=== PATIENT | female | born 1995 | race Hispanic/Latino ===

== ENCOUNTER 2020-04-12 10:55 | Inpatient (IN) | payer OTHER ==
[2020-04-12] MEDS ORDERED: LACTATED RINGERS 1,000 ML ONE (11:35)
[2020-04-12] MEDS ORDERED: fentaNYL 100 MCG/2 ML INJ IV PRN (12:10)
[2020-04-12] MEDS ORDERED: ePHEDrine SULFATE 50 MG/1 ML INJ IV PRN ×2 (12:10→17:39)
[2020-04-12] MEDS ORDERED: LIDOCAINE (2%) 20 MG/1 ML VIAL 20 ML MDV INFILTRATI ONE (12:10)
[2020-04-12] MEDS ORDERED: TERBUTALINE 1 MG/1 ML INJ SUB-Q PRN (12:10)
[2020-04-12] MEDS ORDERED: MINERAL OIL 30 ML ORAL LIQD PO PRN (12:10)
--- NOTE | 2020-04-12 12:21 | History and Physical Report ---
History of Present Illness Date of examination: 04/12/20 Chief complaint: abd pain, contractions, cat 2 tracing in triage History of present illness: EDC Calculations by LMP: 04/10/2020 Past History : 1 Term Births: 0 Para: 0 Aborta: 0 Past Medical History: heart murmur at Past Surgical History: Negative Past Surgical History Family History Summary: PGF - Has Family History of Lung Cancer - Entered On: 10/26/2019 Social History: Patient is single Smoking History: Patient has never smoked. Risk Factors: Smoked Tobacco Use: Never smoker Smokeless Tobacco Use: Never Tobacco Use Comments: gabo. 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 Infection History Hx of STD: none HIV Risk Eval: low risk Hepatitis B Risk Eval: low risk Personal hx. of genital herpes: no Rash, Viral, or Febrile illness since last LMP? no Varicella/Chicken Pox Status: Immunized TB Risk: no Genetic History Congenital Heart Defect: Mom: no Dad: no Kye Disease: Mom: no Dad: no Thalassemia Mom: no Dad: no Neural Tube Defect Mom: no Dad: no Down's Syndrome Mom: no Dad: no Reji-Sachs Mom: no Dad: no Sickle Cell Disease/Trait Mom: no Dad: no Hemophilia Mom: no Dad: no Muscular Dystrophy Mom: no Dad: no Cystic Fibrosis Mom: no Dad: no [place] Chorea Mom: no Dad: no Mental Retardation Mom: no Dad: no Fragile X Mom: no Dad: no Other Genetic/Chromosomal Disorder Mom: no Dad: no Child w/other defect Mom: no Dad: no Enviromental Exposures Enviromental Exposures Reviewed Xray Exposure: no Medication, drug, or alcohol use since LMP: no Chemical/Other Exposure: no Exposure to Cat Liter: no Hx of Parvovirus (Fifth Disease): no 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): None Current Allergies (reviewed today): PENICILLIN (Critical) Past History Past Medical History: other (see HPI) Past Surgical History: other (see HPI) [employer]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: other (see HPI) Family/Genetic History: other (See HPI) - Obstetrical History Expected Date of Delivery: 04/10/20 Actual Gestation: 40 Week(s) 2 Day(s) : 1 Para: 0 Hx # Term Pregnancies: 0 Number of Pregnancies: 0 Spontaneous Abortions: 0 Induced : 0 Number of Living Children: 0 Medications and Allergies Allergies Allergy/AdvReac Type Severity Reaction Status Date / Time Penicillins AdvReac Severe Anaphylaxis Verified 04/12/20 11:27 Active Meds: Active Medications Ephedrine Sulfate (Ephedrine Sulfate) 10 mg IV Q2M PRN PRN Reason: Hypotension Fentanyl (Sublimaze) 100 mcg IV Q2H PRN PRN Reason: Pain,Severe (7-10) LABOR PAIN Oxytocin/Sodium Chloride (Pitocin/Ns 30 Unit/500ml) 30 units in 500 mls @ 2 mls/hr IV TITR ESAU; Protocol Lactated Ringer's (Lactated Ringers) 1,000 mls @ 125 mls/hr IV DIRECT ESAU Oxytocin/Sodium Chloride (Pitocin/Ns 30 Unit/500ml) 30 units in 500 mls @ 40 mls/hr IV TITR ESAU; Protocol Clindamycin HCl (Cleocin 900 Mg/50 Ml) 900 mg in 50 mls @ 100 mls/hr IV Q8HR ESAU; Protocol Lidocaine (Xylocaine 2%) 20 ml INFILTRATI ONCE ONE Stop: 04/12/20 12:11 Mineral Oil (Mineral Oil) 30 ml PO QHS PRN PRN Reason: Constipation Terbutaline Sulfate (Brethine) 0.25 mg SUB-Q ONCE PRN PRN Reason: Hyperstimulation/Hypertonicity Review of Systems All systems: negative - Vital Signs Vital signs: Vital Signs Pulse BP 86 132/77 04/12/20 11:26 04/12/20 11:26 Temp Pulse Resp BP Pulse Ox 98.4 F 98 H 20 132/77 100 04/12/20 11:28 04/12/20 12:08 04/12/20 11:28 04/12/20 11:28 04/12/20 12:08 - Physical Exam Breasts: Positive: normal Cardiovascular: Regular rate Lungs: Positive: Clear to auscultation, Normal air movement Abdomen: Positive: normal appearance, soft Genitourinary (Female): Positive: normal external genitalia, normal perenium Vulva: both: normal Vagina: Positive: normal moisture Anus/Rectum: Positive: normal perianal skin Extremities: Positive: normal - Obstetrical FHR: category 2 Uterine Contraction Monitor Mode: External Uterine Tone Measurement Phase: Contraction Uterine Contraction Intensity: Mild Results All other labs normal. Assessment and Plan 25y/o @ 40+2 presented to triage with c/o labor, during observation, FHT noted to be cat 2 with decels occurring around ctx. EFW more difficult d/t maternal habitus. Plan to admit, place internal monitor and augment as tolerated. Dr. Perez updated. - Patient Problems (1) 40 weeks gestation of Current Visit: Yes Status: Acute (2) Non-reassuring electronic monitoring tracing Current Visit: Yes Status: Acute Plan to address problem: placement of IUPC and ISE as soon as possible for better monitoring (3) GBS carrier Current Visit: Yes Status: Acute Plan to address problem: abx q8hrs until delivery
[2020-04-12] MEDS: LACTATED RINGERS 1,000 ML IV SCH ×3 (12:47→18:31)
[2020-04-12] MEDS ORDERED: OXYTOCIN DRIP 30 UNITS/500 ML BAG IV SCH ×2 (13:00)
[2020-04-12 13:23] LABS: Mean Corpuscular HGB Conc 36 % (30-34); Mean Corpuscular Volume 90 fl (79-97); Platelet Count 237 K/mm3 (140-440); Red Blood Count 4.42 M/mm3 (3.65-5.03)
[2020-04-12 13:28] LABS: Hematocrit 39.6 % (30.3-42.9); Hemoglobin 14.4 gm/dl (10.1-14.3)
[2020-04-12] MEDS ORDERED: NALOXONE 2 MG/2 ML INJ IV PRN (17:39)
--- NOTE | 2020-04-12 17:51 | Progress Note ---
Assessment and Plan 25y/o @ 40+2. SROM clear fluid. FHT's CAT 2 with decels. Internals placed and resuscitation efforts complete. Now CAT 1. bolusing for epidural placement. Continue monitoring and anticipate . - Patient Problems (1) 40 weeks gestation of Current Visit: Yes Status: Acute (2) Non-reassuring electronic monitoring tracing Current Visit: Yes Status: Acute Plan to address problem: placement of IUPC and ISE for more accurate monitoring (3) GBS carrier Current Visit: Yes Status: Acute Plan to address problem: abx q8hrs until delivery Subjective - Subjective Date of service: 04/12/20 Principal diagnosis: IUP @ term, active labor Interval history: EDC Calculations by LMP: 04/10/2020 Past History : 1 Term Births: 0 Para: 0 Aborta: 0 Past Medical History: heart murmur at Past Surgical History: Negative Past Surgical History Family History Summary: PGF - Has Family History of Lung Cancer - Entered On: 10/26/2019 Social History: Patient is single Smoking History: Patient has never smoked. Risk Factors: Smoked Tobacco Use: Never smoker Smokeless Tobacco Use: Never Tobacco Use Comments: gabo. 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 Infection History Hx of STD: none HIV Risk Eval: low risk Hepatitis B Risk Eval: low risk Personal hx. of genital herpes: no Rash, Viral, or Febrile illness since last LMP? no Varicella/Chicken Pox Status: Immunized TB Risk: no Genetic History Congenital Heart Defect: Mom: no Dad: no Kye Disease: Mom: no Dad: no Thalassemia Mom: no Dad: no Neural Tube Defect Mom: no Dad: no Down's Syndrome Mom: no Dad: no Reji-Sachs Mom: no Dad: no Sickle Cell Disease/Trait Mom: no Dad: no Hemophilia Mom: no Dad: no Muscular Dystrophy Mom: no Dad: no Cystic Fibrosis Mom: no Dad: no [place] Chorea Mom: no Dad: no Mental Retardation Mom: no Dad: no Fragile X Mom: no Dad: no Other Genetic/Chromosomal Disorder Mom: no Dad: no Child w/other defect Mom: no Dad: no Enviromental Exposures Enviromental Exposures Reviewed Xray Exposure: no Medication, drug, or alcohol use since LMP: no Chemical/Other Exposure: no Exposure to Cat Liter: no Hx of Parvovirus (Fifth Disease): no 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): None Current Allergies (reviewed today): PENICILLIN (Critical) Patient reports: loss of fluid Objective - Vital Signs Vital Signs: Vital Signs - 12hr 04/12/20 04/12/20 04/12/20 11:26 11:28 11:33 Temperature 98.4 F Pulse Rate 86 86 77 Respiratory 20 Rate Blood Pressure 132/77 Blood Pressure 132/77 [Right] O2 Sat by Pulse 98 98 Oximetry 04/12/20 04/12/20 04/12/20 11:38 11:43 11:48 Temperature Pulse Rate 88 86 85 Respiratory Rate Blood Pressure Blood Pressure [Right] O2 Sat by Pulse 98 97 98 Oximetry 04/12/20 04/12/20 04/12/20 11:53 11:58 12:03 Temperature Pulse Rate 80 117 H 74 Respiratory Rate Blood Pressure Blood Pressure [Right] O2 Sat by Pulse 98 97 99 Oximetry 04/12/20 04/12/20 04/12/20 12:08 12:18 12:19 Temperature Pulse Rate 98 H 89 96 H Respiratory Rate Blood Pressure Blood Pressure [Right] O2 Sat by Pulse 100 99 92 Oximetry 04/12/20 04/12/20 04/12/20 12:20 12:23 12:26 Temperature Pulse Rate 86 92 H 90 Respiratory Rate Blood Pressure 133/68 Blood Pressure [Right] O2 Sat by Pulse 95 94 Oximetry 04/12/20 04/12/20 04/12/20 12:28 12:33 12:38 Temperature Pulse Rate 96 H 93 H 89 Respiratory Rate Blood Pressure Blood Pressure [Right] O2 Sat by Pulse 95 94 97 Oximetry 04/12/20 04/12/20 04/12/20 12:43 12:48 12:53 Temperature Pulse Rate 88 88 97 H Respiratory Rate Blood Pressure Blood Pressure [Right] O2 Sat by Pulse 97 98 97 Oximetry 04/12/20 04/12/20 04/12/20 12:58 13:03 13:08 Temperature Pulse Rate 87 96 H 82 Respiratory Rate Blood Pressure Blood Pressure [Right] O2 Sat by Pulse 97 97 97 Oximetry 04/12/20 04/12/20 04/12/20 13:13 13:18 13:23 Temperature Pulse Rate 86 78 79 Respiratory Rate Blood Pressure Blood Pressure [Right] O2 Sat by Pulse 96 97 98 Oximetry 04/12/20 04/12/20 04/12/20 13:28 13:33 13:38 Temperature Pulse Rate 86 84 85 Respiratory Rate Blood Pressure Blood Pressure [Right] O2 Sat by Pulse 98 97 98 Oximetry 04/12/20 04/12/20 04/12/20 13:43 13:48 13:53 Temperature Pulse Rate 83 91 H 88 Respiratory Rate Blood Pressure Blood Pressure [Right] O2 Sat by Pulse 96 97 98 Oximetry 04/12/20 04/12/20 04/12/20 13:58 14:03 14:08 Temperature Pulse Rate 86 93 H 85 Respiratory Rate Blood Pressure Blood Pressure [Right] O2 Sat by Pulse 98 98 96 Oximetry 04/12/20 04/12/20 04/12/20 14:13 14:18 14:23 Temperature Pulse Rate 93 H 86 103 H Respiratory Rate Blood Pressure Blood Pressure [Right] O2 Sat by Pulse 96 95 98 Oximetry 04/12/20 04/12/20 04/12/20 14:28 14:33 14:36 Temperature Pulse Rate 89 83 102 H Respiratory Rate Blood Pressure Blood Pressure [Right] O2 Sat by Pulse 98 96 94 Oximetry 04/12/20 04/12/20 04/12/20 14:38 14:43 14:48 Temperature Pulse Rate 75 79 90 Respiratory Rate Blood Pressure Blood Pressure [Right] O2 Sat by Pulse 99 98 98 Oximetry 04/12/20 04/12/20 04/12/20 14:53 14:58 15:03 Temperature Pulse Rate 100 H 83 81 Respiratory Rate Blood Pressure Blood Pressure [Right] O2 Sat by Pulse 98 99 98 Oximetry 04/12/20 04/12/20 04/12/20 15:08 15:13 15:18 Temperature Pulse Rate 86 86 84 Respiratory Rate Blood Pressure Blood Pressure [Right] O2 Sat by Pulse 99 99 98 Oximetry 04/12/20 04/12/20 04/12/20 15:23 15:28 15:33 Temperature Pulse Rate 86 92 H 91 H Respiratory Rate Blood Pressure Blood Pressure [Right] O2 Sat by Pulse 98 97 98 Oximetry 04/12/20 04/12/20 04/12/20 15:38 15:43 15:48 Temperature Pulse Rate 83 86 89 Respiratory Rate Blood Pressure Blood Pressure [Right] O2 Sat by Pulse 97 99 98 Oximetry 04/12/20 04/12/20 04/12/20 15:53 15:58 16:00 Temperature Pulse Rate 85 83 Respiratory 16 Rate Blood Pressure Blood Pressure [Right] O2 Sat by Pulse 98 98 Oximetry 04/12/20 04/12/20 04/12/20 16:03 16:05 16:08 Temperature Pulse Rate 81 93 H 111 H Respiratory Rate Blood Pressure 140/74 Blood Pressure [Right] O2 Sat by Pulse 97 95 Oximetry 04/12/20 04/12/20 04/12/20 16:13 16:18 16:20 Temperature Pulse Rate 81 80 79 Respiratory Rate Blood Pressure 139/72 Blood Pressure [Right] O2 Sat by Pulse 95 96 Oximetry 04/12/20 04/12/20 04/12/20 16:23 16:26 16:28 Temperature Pulse Rate 84 87 81 Respiratory Rate Blood Pressure Blood Pressure [Right] O2 Sat by Pulse 97 94 97 Oximetry 04/12/20 04/12/20 04/12/20 16:33 16:35 16:38 Temperature 98.3 F Pulse Rate 88 112 H 79 Respiratory Rate Blood Pressure 148/84 Blood Pressure [Right] O2 Sat by Pulse 96 97 Oximetry 04/12/20 04/12/20 04/12/20 16:40 16:43 16:47 Temperature Pulse Rate 88 111 H 91 H Respiratory Rate Blood Pressure Blood Pressure [Right] O2 Sat by Pulse 94 97 94 Oximetry 04/12/20 04/12/20 04/12/20 16:48 16:50 16:53 Temperature Pulse Rate 86 80 82 Respiratory Rate Blood Pressure 145/76 Blood Pressure [Right] O2 Sat by Pulse 97 98 Oximetry 04/12/20 04/12/20 04/12/20 16:58 17:03 17:05 Temperature Pulse Rate 82 81 80 Respiratory Rate Blood Pressure 148/76 Blood Pressure [Right] O2 Sat by Pulse 98 99 Oximetry 04/12/20 04/12/20 04/12/20 17:08 17:13 17:18 Temperature Pulse Rate 131 H 120 H 78 Respiratory Rate Blood Pressure Blood Pressure [Right] O2 Sat by Pulse 95 97 99 Oximetry 04/12/20 04/12/20 04/12/20 17:21 17:23 17:28 Temperature Pulse Rate 74 98 H 81 Respiratory Rate Blood Pressure 126/64 Blood Pressure [Right] O2 Sat by Pulse 100 100 Oximetry 04/12/20 04/12/20 04/12/20 17:33 17:38 17:43 Temperature Pulse Rate 79 87 90 Respiratory Rate Blood Pressure Blood Pressure [Right] O2 Sat by Pulse 100 99 100 Oximetry - Exam Breasts: normal Cardiovascular: Regular rate Lungs: Normal air movement Abdomen: Present: normal appearance, soft Vulva: both: normal Uterus: Present: normal FHR: category 2 Uterine Contraction Monitor Mode: Internal Cervical Dilatation: 4 Cervical Effacement Percentage: 100 station: -3 Uterine Contraction Frequency (min): 1-7 Uterine Contraction Pattern: Regular Uterine Contraction Intensity: Moderate Extremities: normal - Labs Labs: Abnormal Labs 04/12/20 12:00 Hgb 14.4 H MCH 33 H MCHC 36 H RDW 13.0 L Laboratory Results - last 24 hr 04/12/20 04/12/20 04/12/20 12:00 12:00 12:00 WBC 10.9 RBC 4.42 Hgb 14.4 H Hct 39.6 MCV 90 MCH 33 H MCHC 36 H RDW 13.0 L Plt Count 237 Syphilis IgG Antibody Nonreactive Blood Type A NEGATIVE Antibody Screen Negative
[2020-04-12] MEDS ORDERED: fentaNYL-BUPIV 2 MCG/ML-0.125% 200 MCG/100 ML BAG EPIDURAL SCH (18:00)
--- NOTE | 2020-04-12 20:50 | Anesthesia Consultation ---
Anesthesia Consult and Med Hx Date of service: 04/12/20 - Airway Anesthetic Teeth Evaluation: Good ROM Head & Neck: Adequate Mental/Hyoid Distance: Adequate Mallampati Class: Class II Intubation Access Assessment: Probably Good - Pulmonary Exam CTA: Yes - Cardiac Exam Cardiac Exam: RRR - Pre-Operative Health Status ASA Pre-Surgery Classification: ASA2 Proposed Anesthetic Plan: Epidural - Pulmonary Hx Asthma: No COPD: No Hx Pneumonia: No - Cardiovascular System Hx Hypertension: No - Central Nervous System Hx Seizures: No Hx Psychiatric Problems: No - Endocrine Hx Renal Disease: No Hx End Stage Renal Disease: No Hx Hypothyroidism: No Hx Hyperthyroidism: No - Hematic Hx Anemia: No Hx Sickle Cell Disease: No - Other Systems Hx Alcohol Use: No Hx Obesity: Yes
--- NOTE | 2020-04-12 20:51 | Progress Note ---
Labor Epidural - Labor Epidural Start Time: 18:33 Stop Time: 18:50 Performed by:: ALDO ADAMSON Procedure: Patient is requesting epidural for labor pain. H&P, and labs reviewed. Procedure explained, questions answered, consent obtained. Patient in sitting position with blood pressure cuff and pulse ox on and working. Timeout performed immediately before start of procedure. Sterile betadine prep/drape. 3 mL 1% lidocaine skin wheal at L[3]-L[4]. 18-gauge [employer] epidural needle advanced to [id number] with saline at [7] cm. Epidural dexmedetomidine [30] mcg administered. Epidural catheter advanced to [12] cm, negative aspiration for blood and csf, negative test dose 3 ml 1.5% lidocaine with epinephrine. Sterile steri-strips and tegaderm applied, followed by tape reinforcement. Patient tolerated procedure well. Mohan ASHBY
--- NOTE | 2020-04-12 21:10 | Progress Note ---
Assessment and Plan 25y/o term IUP @ 40+2. Pt comfortable with epidural, sitting [place]. SVE 8/100/-1. Anticipate - Patient Problems (1) 40 weeks gestation of Current Visit: Yes Status: Acute (2) Non-reassuring electronic monitoring tracing Current Visit: Yes Status: Acute Plan to address problem: continuous monitoring, ISE and IUPC working well (3) GBS carrier Current Visit: Yes Status: Acute Plan to address problem: abx q8hrs until delivery Subjective - Subjective Date of service: 04/12/20 Principal diagnosis: IUP @ term, active labor Interval history: EDC Calculations by LMP: 04/10/2020 Past History : 1 Term Births: 0 Para: 0 Aborta: 0 Past Medical History: heart murmur at Past Surgical History: Negative Past Surgical History Family History Summary: PGF - Has Family History of Lung Cancer - Entered On: 10/26/2019 Social History: Patient is single Smoking History: Patient has never smoked. Risk Factors: Smoked Tobacco Use: Never smoker Smokeless Tobacco Use: Never Tobacco Use Comments: gabo. 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 Infection History Hx of STD: none HIV Risk Eval: low risk Hepatitis B Risk Eval: low risk Personal hx. of genital herpes: no Rash, Viral, or Febrile illness since last LMP? no Varicella/Chicken Pox Status: Immunized TB Risk: no Genetic History Congenital Heart Defect: Mom: no Dad: no Kye Disease: Mom: no Dad: no Thalassemia Mom: no Dad: no Neural Tube Defect Mom: no Dad: no Down's Syndrome Mom: no Dad: no Reji-Sachs Mom: no Dad: no Sickle Cell Disease/Trait Mom: no Dad: no Hemophilia Mom: no Dad: no Muscular Dystrophy Mom: no Dad: no Cystic Fibrosis Mom: no Dad: no [place] Chorea Mom: no Dad: no Mental Retardation Mom: no Dad: no Fragile X Mom: no Dad: no Other Genetic/Chromosomal Disorder Mom: no Dad: no Child w/other defect Mom: no Dad: no Enviromental Exposures Enviromental Exposures Reviewed Xray Exposure: no Medication, drug, or alcohol use since LMP: no Chemical/Other Exposure: no Exposure to Cat Liter: no Hx of Parvovirus (Fifth Disease): no 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): None Current Allergies (reviewed today): PENICILLIN (Critical) Patient reports: no new complaints Objective - Vital Signs Vital Signs: Vital Signs - 12hr 04/12/20 04/12/20 04/12/20 11:26 11:28 11:33 Temperature 98.4 F Pulse Rate 86 86 77 Respiratory 20 Rate Blood Pressure 132/77 Blood Pressure 132/77 [Right] O2 Sat by Pulse 98 98 Oximetry 04/12/20 04/12/20 04/12/20 11:38 11:43 11:48 Temperature Pulse Rate 88 86 85 Respiratory Rate Blood Pressure Blood Pressure [Right] O2 Sat by Pulse 98 97 98 Oximetry 04/12/20 04/12/20 04/12/20 11:53 11:58 12:03 Temperature Pulse Rate 80 117 H 74 Respiratory Rate Blood Pressure Blood Pressure [Right] O2 Sat by Pulse 98 97 99 Oximetry 04/12/20 04/12/20 04/12/20 12:08 12:18 12:19 Temperature Pulse Rate 98 H 89 96 H Respiratory Rate Blood Pressure Blood Pressure [Right] O2 Sat by Pulse 100 99 92 Oximetry 04/12/20 04/12/20 04/12/20 12:20 12:23 12:26 Temperature Pulse Rate 86 92 H 90 Respiratory Rate Blood Pressure 133/68 Blood Pressure [Right] O2 Sat by Pulse 95 94 Oximetry 04/12/20 04/12/20 04/12/20 12:28 12:33 12:38 Temperature Pulse Rate 96 H 93 H 89 Respiratory Rate Blood Pressure Blood Pressure [Right] O2 Sat by Pulse 95 94 97 Oximetry 04/12/20 04/12/20 04/12/20 12:43 12:48 12:53 Temperature Pulse Rate 88 88 97 H Respiratory Rate Blood Pressure Blood Pressure [Right] O2 Sat by Pulse 97 98 97 Oximetry 04/12/20 04/12/20 04/12/20 12:58 13:03 13:08 Temperature Pulse Rate 87 96 H 82 Respiratory Rate Blood Pressure Blood Pressure [Right] O2 Sat by Pulse 97 97 97 Oximetry 04/12/20 04/12/20 04/12/20 13:13 13:18 13:23 Temperature Pulse Rate 86 78 79 Respiratory Rate Blood Pressure Blood Pressure [Right] O2 Sat by Pulse 96 97 98 Oximetry 04/12/20 04/12/20 04/12/20 13:28 13:33 13:38 Temperature Pulse Rate 86 84 85 Respiratory Rate Blood Pressure Blood Pressure [Right] O2 Sat by Pulse 98 97 98 Oximetry 04/12/20 04/12/20 04/12/20 13:43 13:48 13:53 Temperature Pulse Rate 83 91 H 88 Respiratory Rate Blood Pressure Blood Pressure [Right] O2 Sat by Pulse 96 97 98 Oximetry 04/12/20 04/12/20 04/12/20 13:58 14:03 14:08 Temperature Pulse Rate 86 93 H 85 Respiratory Rate Blood Pressure Blood Pressure [Right] O2 Sat by Pulse 98 98 96 Oximetry 04/12/20 04/12/20 04/12/20 14:13 14:18 14:23 Temperature Pulse Rate 93 H 86 103 H Respiratory Rate Blood Pressure Blood Pressure [Right] O2 Sat by Pulse 96 95 98 Oximetry 04/12/20 04/12/20 04/12/20 14:28 14:33 14:36 Temperature Pulse Rate 89 83 102 H Respiratory Rate Blood Pressure Blood Pressure [Right] O2 Sat by Pulse 98 96 94 Oximetry 04/12/20 04/12/20 04/12/20 14:38 14:43 14:48 Temperature Pulse Rate 75 79 90 Respiratory Rate Blood Pressure Blood Pressure [Right] O2 Sat by Pulse 99 98 98 Oximetry 04/12/20 04/12/20 04/12/20 14:53 14:58 15:03 Temperature Pulse Rate 100 H 83 81 Respiratory Rate Blood Pressure Blood Pressure [Right] O2 Sat by Pulse 98 99 98 Oximetry 04/12/20 04/12/20 04/12/20 15:08 15:13 15:18 Temperature Pulse Rate 86 86 84 Respiratory Rate Blood Pressure Blood Pressure [Right] O2 Sat by Pulse 99 99 98 Oximetry 04/12/20 04/12/20 04/12/20 15:23 15:28 15:33 Temperature Pulse Rate 86 92 H 91 H Respiratory Rate Blood Pressure Blood Pressure [Right] O2 Sat by Pulse 98 97 98 Oximetry 04/12/20 04/12/20 04/12/20 15:38 15:43 15:48 Temperature Pulse Rate 83 86 89 Respiratory Rate Blood Pressure Blood Pressure [Right] O2 Sat by Pulse 97 99 98 Oximetry 04/12/20 04/12/20 04/12/20 15:53 15:58 16:00 Temperature Pulse Rate 85 83 Respiratory 16 Rate Blood Pressure Blood Pressure [Right] O2 Sat by Pulse 98 98 Oximetry 04/12/20 04/12/20 04/12/20 16:03 16:05 16:08 Temperature Pulse Rate 81 93 H 111 H Respiratory Rate Blood Pressure 140/74 Blood Pressure [Right] O2 Sat by Pulse 97 95 Oximetry 04/12/20 04/12/20 04/12/20 16:10 16:13 16:18 Temperature 98.3 F Pulse Rate 81 80 Respiratory Rate Blood Pressure Blood Pressure [Right] O2 Sat by Pulse 95 96 Oximetry 04/12/20 04/12/20 04/12/20 16:20 16:23 16:26 Temperature Pulse Rate 79 84 87 Respiratory Rate Blood Pressure 139/72 Blood Pressure [Right] O2 Sat by Pulse 97 94 Oximetry 04/12/20 04/12/20 04/12/20 16:28 16:33 16:35 Temperature 98.3 F Pulse Rate 81 88 112 H Respiratory Rate Blood Pressure 148/84 Blood Pressure [Right] O2 Sat by Pulse 97 96 Oximetry 04/12/20 04/12/20 04/12/20 16:38 16:40 16:43 Temperature Pulse Rate 79 88 111 H Respiratory Rate Blood Pressure Blood Pressure [Right] O2 Sat by Pulse 97 94 97 Oximetry 04/12/20 04/12/20 04/12/20 16:47 16:48 16:50 Temperature Pulse Rate 91 H 86 80 Respiratory Rate Blood Pressure 145/76 Blood Pressure [Right] O2 Sat by Pulse 94 97 Oximetry 04/12/20 04/12/20 04/12/20 16:53 16:58 17:00 Temperature 98.8 F Pulse Rate 82 82 Respiratory Rate Blood Pressure Blood Pressure [Right] O2 Sat by Pulse 98 98 Oximetry 04/12/20 04/12/20 04/12/20 17:03 17:05 17:08 Temperature Pulse Rate 81 80 131 H Respiratory Rate Blood Pressure 148/76 Blood Pressure [Right] O2 Sat by Pulse 99 95 Oximetry 04/12/20 04/12/20 04/12/20 17:13 17:18 17:21 Temperature Pulse Rate 120 H 78 74 Respiratory Rate Blood Pressure 126/64 Blood Pressure [Right] O2 Sat by Pulse 97 99 Oximetry 04/12/20 04/12/20 04/12/20 17:23 17:28 17:33 Temperature Pulse Rate 98 H 81 79 Respiratory Rate Blood Pressure Blood Pressure [Right] O2 Sat by Pulse 100 100 100 Oximetry 04/12/20 04/12/20 04/12/20 17:38 17:43 17:48 Temperature Pulse Rate 87 90 79 Respiratory Rate Blood Pressure Blood Pressure [Right] O2 Sat by Pulse 99 100 99 Oximetry 04/12/20 04/12/20 04/12/20 17:53 17:58 18:03 Temperature Pulse Rate 86 81 82 Respiratory Rate Blood Pressure Blood Pressure [Right] O2 Sat by Pulse 98 100 100 Oximetry 04/12/20 04/12/20 04/12/20 18:08 18:13 18:18 Temperature Pulse Rate 97 H 84 90 Respiratory Rate Blood Pressure Blood Pressure [Right] O2 Sat by Pulse 99 99 98 Oximetry 04/12/20 04/12/20 04/12/20 18:23 18:28 18:33 Temperature Pulse Rate 118 H 78 99 H Respiratory Rate Blood Pressure Blood Pressure [Right] O2 Sat by Pulse 99 99 99 Oximetry 04/12/20 04/12/20 04/12/20 18:36 18:38 18:39 Temperature Pulse Rate 99 H 107 H 89 Respiratory Rate Blood Pressure 142/79 142/67 Blood Pressure [Right] O2 Sat by Pulse 96 Oximetry 04/12/20 04/12/20 04/12/20 18:42 18:43 18:46 Temperature Pulse Rate 82 88 88 Respiratory Rate Blood Pressure 146/69 159/90 Blood Pressure [Right] O2 Sat by Pulse 95 Oximetry 04/12/20 04/12/20 04/12/20 18:48 18:51 18:52 Temperature Pulse Rate 104 H 88 93 H Respiratory Rate Blood Pressure 153/94 135/69 128/71 Blood Pressure [Right] O2 Sat by Pulse 96 Oximetry 04/12/20 04/12/20 04/12/20 18:53 18:54 18:55 Temperature Pulse Rate 80 81 80 Respiratory Rate Blood Pressure 126/61 133/65 141/73 Blood Pressure [Right] O2 Sat by Pulse 95 Oximetry 04/12/20 04/12/20 04/12/20 18:56 18:58 18:59 Temperature Pulse Rate 95 H 70 75 Respiratory Rate Blood Pressure 129/64 121/71 134/63 Blood Pressure [Right] O2 Sat by Pulse 100 Oximetry 04/12/20 04/12/20 04/12/20 19:00 19:01 19:02 Temperature 98.2 F Pulse Rate 86 76 75 Respiratory Rate Blood Pressure 137/73 153/68 147/66 Blood Pressure [Right] O2 Sat by Pulse Oximetry 04/12/20 04/12/20 04/12/20 19:03 19:08 19:09 Temperature Pulse Rate 83 84 84 Respiratory Rate Blood Pressure 142/75 Blood Pressure [Right] O2 Sat by Pulse 100 100 Oximetry 04/12/20 04/12/20 04/12/20 19:13 19:14 19:18 Temperature Pulse Rate 84 85 81 Respiratory Rate Blood Pressure 130/57 Blood Pressure [Right] O2 Sat by Pulse 100 100 Oximetry 04/12/20 04/12/20 04/12/20 19:21 19:23 19:28 Temperature Pulse Rate 88 92 H 79 Respiratory Rate Blood Pressure 116/50 107/49 112/50 Blood Pressure [Right] O2 Sat by Pulse 100 100 Oximetry 04/12/20 04/12/20 04/12/20 19:33 19:34 19:38 Temperature Pulse Rate 82 84 82 Respiratory Rate Blood Pressure 131/60 133/60 Blood Pressure [Right] O2 Sat by Pulse 100 100 Oximetry 04/12/20 04/12/20 04/12/20 19:43 19:48 19:53 Temperature Pulse Rate 82 82 80 Respiratory Rate Blood Pressure 129/61 Blood Pressure [Right] O2 Sat by Pulse 100 100 100 Oximetry 04/12/20 04/12/20 04/12/20 19:58 20:00 20:03 Temperature 97.4 F L Pulse Rate 77 87 Respiratory Rate Blood Pressure 120/59 Blood Pressure [Right] O2 Sat by Pulse 100 100 Oximetry 04/12/20 04/12/20 04/12/20 20:08 20:13 20:15 Temperature Pulse Rate 83 89 77 Respiratory Rate Blood Pressure 126/57 Blood Pressure [Right] O2 Sat by Pulse 100 100 Oximetry 04/12/20 04/12/20 04/12/20 20:18 20:23 20:28 Temperature Pulse Rate 98 H 78 81 Respiratory Rate Blood Pressure Blood Pressure [Right] O2 Sat by Pulse 100 100 100 Oximetry 04/12/20 04/12/20 04/12/20 20:29 20:33 20:38 Temperature Pulse Rate 89 83 101 H Respiratory Rate Blood Pressure 119/53 Blood Pressure [Right] O2 Sat by Pulse 100 100 Oximetry 04/12/20 04/12/20 04/12/20 20:43 20:45 20:48 Temperature Pulse Rate 136 H 103 H 116 H Respiratory Rate Blood Pressure 129/60 Blood Pressure [Right] O2 Sat by Pulse 100 100 Oximetry 04/12/20 04/12/20 04/12/20 20:53 20:58 20:59 Temperature Pulse Rate 140 H 96 H 95 H Respiratory Rate Blood Pressure 142/65 Blood Pressure [Right] O2 Sat by Pulse 100 100 Oximetry - Exam Cardiovascular: Regular rate Lungs: Normal air movement Abdomen: Present: normal appearance, soft Vulva: both: normal Uterus: Present: normal FHR: category 2 Uterine Contraction Monitor Mode: External Cervical Dilatation: 8 Cervical Effacement Percentage: 100 station: -1 Uterine Contraction Frequency (min): 2-4 Uterine Contraction Pattern: Regular Uterine Contraction Intensity: Moderate - Labs Labs: Abnormal Labs 04/12/20 12:00 Hgb 14.4 H MCH 33 H MCHC 36 H RDW 13.0 L Laboratory Results - last 24 hr 04/12/20 04/12/20 04/12/20 12:00 12:00 12:00 WBC 10.9 RBC 4.42 Hgb 14.4 H Hct 39.6 MCV 90 MCH 33 H MCHC 36 H RDW 13.0 L Plt Count 237 Syphilis IgG Antibody Nonreactive Blood Type A NEGATIVE Antibody Screen Negative
[2020-04-12] MEDS ORDERED: METOCLOPRAMIDE 10 MG/2 ML INJ IV ONE (22:01)
[2020-04-12] MEDS ORDERED: BICITRA ORAL LIQD 30ML PO ONE (22:01)
[2020-04-12] MEDS ORDERED: FAMOTIDINE 20 MG/2 ML INJ IV ONE (22:01)
--- NOTE | 2020-04-12 22:02 | Progress Note ---
<FLY MARTINES - Last Filed: 04/12/20 21:58> Assessment and Plan Pt had several deep decelerations to the 50's & 60's with slow return to baseline despite IVF bolus, position change and o2. head rapidly decended from -1 to +1. Dr. Perez at discussing possible need for operative if condition continues to show signs of distress. Pt verbalizes understanding, patient being consented for surgery. - Patient Problems (1) 40 weeks gestation of Current Visit: Yes Status: Acute (2) Non-reassuring electronic monitoring tracing Current Visit: Yes Status: Acute (3) GBS carrier Current Visit: Yes Status: Acute Subjective - Subjective Date of service: 04/12/20 Principal diagnosis: IUP @ term, active labor Interval history: EDC Calculations by LMP: 04/10/2020 Past History : 1 Term Births: 0 Para: 0 Aborta: 0 Past Medical History: heart murmur at Past Surgical History: Negative Past Surgical History Family History Summary: PGF - Has Family History of Lung Cancer - Entered On: 10/26/2019 Social History: Patient is single Smoking History: Patient has never smoked. Risk Factors: Smoked Tobacco Use: Never smoker Smokeless Tobacco Use: Never Tobacco Use Comments: gabo. 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 Infection History Hx of STD: none HIV Risk Eval: low risk Hepatitis B Risk Eval: low risk Personal hx. of genital herpes: no Rash, Viral, or Febrile illness since last LMP? no Varicella/Chicken Pox Status: Immunized TB Risk: no Genetic History Congenital Heart Defect: Mom: no Dad: no Kye Disease: Mom: no Dad: no Thalassemia Mom: no Dad: no Neural Tube Defect Mom: no Dad: no Down's Syndrome Mom: no Dad: no Reji-Sachs Mom: no Dad: no Sickle Cell Disease/Trait Mom: no Dad: no Hemophilia Mom: no Dad: no Muscular Dystrophy Mom: no Dad: no Cystic Fibrosis Mom: no Dad: no [place] Chorea Mom: no Dad: no Mental Retardation Mom: no Dad: no Fragile X Mom: no Dad: no Other Genetic/Chromosomal Disorder Mom: no Dad: no Child w/other defect Mom: no Dad: no Enviromental Exposures Enviromental Exposures Reviewed Xray Exposure: no Medication, drug, or alcohol use since LMP: no Chemical/Other Exposure: no Exposure to Cat Liter: no Hx of Parvovirus (Fifth Disease): no Occupational Exposure to Children: none 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 Active Medications (reviewed today): None Current Allergies (reviewed today): PENICILLIN (Critical) Patient reports: no new complaints Objective - Vital Signs Vital Signs: Vital Signs - 12hr 04/12/20 04/12/20 04/12/20 11:26 11:28 11:33 Temperature 98.4 F Pulse Rate 86 86 77 Respiratory 20 Rate Blood Pressure 132/77 Blood Pressure 132/77 [Right] O2 Sat by Pulse 98 98 Oximetry 04/12/20 04/12/20 04/12/20 11:38 11:43 11:48 Temperature Pulse Rate 88 86 85 Respiratory Rate Blood Pressure Blood Pressure [Right] O2 Sat by Pulse 98 97 98 Oximetry 04/12/20 04/12/20 04/12/20 11:53 11:58 12:03 Temperature Pulse Rate 80 117 H 74 Respiratory Rate Blood Pressure Blood Pressure [Right] O2 Sat by Pulse 98 97 99 Oximetry 04/12/20 04/12/20 04/12/20 12:08 12:18 12:19 Temperature Pulse Rate 98 H 89 96 H Respiratory Rate Blood Pressure Blood Pressure [Right] O2 Sat by Pulse 100 99 92 Oximetry 04/12/20 04/12/20 04/12/20 12:20 12:23 12:26 Temperature Pulse Rate 86 92 H 90 Respiratory Rate Blood Pressure 133/68 Blood Pressure [Right] O2 Sat by Pulse 95 94 Oximetry 04/12/20 04/12/20 04/12/20 12:28 12:33 12:38 Temperature Pulse Rate 96 H 93 H 89 Respiratory Rate Blood Pressure Blood Pressure [Right] O2 Sat by Pulse 95 94 97 Oximetry 04/12/20 04/12/20 04/12/20 12:43 12:48 12:53 Temperature Pulse Rate 88 88 97 H Respiratory Rate Blood Pressure Blood Pressure [Right] O2 Sat by Pulse 97 98 97 Oximetry 04/12/20 04/12/20 04/12/20 12:58 13:03 13:08 Temperature Pulse Rate 87 96 H 82 Respiratory Rate Blood Pressure Blood Pressure [Right] O2 Sat by Pulse 97 97 97 Oximetry 04/12/20 04/12/20 04/12/20 13:13 13:18 13:23 Temperature Pulse Rate 86 78 79 Respiratory Rate Blood Pressure Blood Pressure [Right] O2 Sat by Pulse 96 97 98 Oximetry 04/12/20 04/12/20 04/12/20 13:28 13:33 13:38 Temperature Pulse Rate 86 84 85 Respiratory Rate Blood Pressure Blood Pressure [Right] O2 Sat by Pulse 98 97 98 Oximetry 04/12/20 04/12/20 04/12/20 13:43 13:48 13:53 Temperature Pulse Rate 83 91 H 88 Respiratory Rate Blood Pressure Blood Pressure [Right] O2 Sat by Pulse 96 97 98 Oximetry 04/12/20 04/12/20 04/12/20 13:58 14:03 14:08 Temperature Pulse Rate 86 93 H 85 Respiratory Rate Blood Pressure Blood Pressure [Right] O2 Sat by Pulse 98 98 96 Oximetry 04/12/20 04/12/20 04/12/20 14:13 14:18 14:23 Temperature Pulse Rate 93 H 86 103 H Respiratory Rate Blood Pressure Blood Pressure [Right] O2 Sat by Pulse 96 95 98 Oximetry 04/12/20 04/12/20 04/12/20 14:28 14:33 14:36 Temperature Pulse Rate 89 83 102 H Respiratory Rate Blood Pressure Blood Pressure [Right] O2 Sat by Pulse 98 96 94 Oximetry 04/12/20 04/12/20 04/12/20 14:38 14:43 14:48 Temperature Pulse Rate 75 79 90 Respiratory Rate Blood Pressure Blood Pressure [Right] O2 Sat by Pulse 99 98 98 Oximetry 04/12/20 04/12/20 04/12/20 14:53 14:58 15:03 Temperature Pulse Rate 100 H 83 81 Respiratory Rate Blood Pressure Blood Pressure [Right] O2 Sat by Pulse 98 99 98 Oximetry 04/12/20 04/12/20 04/12/20 15:08 15:13 15:18 Temperature Pulse Rate 86 86 84 Respiratory Rate Blood Pressure Blood Pressure [Right] O2 Sat by Pulse 99 99 98 Oximetry 04/12/20 04/12/20 04/12/20 15:23 15:28 15:33 Temperature Pulse Rate 86 92 H 91 H Respiratory Rate Blood Pressure Blood Pressure [Right] O2 Sat by Pulse 98 97 98 Oximetry 04/12/20 04/12/20 04/12/20 15:38 15:43 15:48 Temperature Pulse Rate 83 86 89 Respiratory Rate Blood Pressure Blood Pressure [Right] O2 Sat by Pulse 97 99 98 Oximetry 04/12/20 04/12/20 04/12/20 15:53 15:58 16:00 Temperature Pulse Rate 85 83 Respiratory 16 Rate Blood Pressure Blood Pressure [Right] O2 Sat by Pulse 98 98 Oximetry 04/12/20 04/12/20 04/12/20 16:03 16:05 16:08 Temperature Pulse Rate 81 93 H 111 H Respiratory Rate Blood Pressure 140/74 Blood Pressure [Right] O2 Sat by Pulse 97 95 Oximetry 04/12/20 04/12/20 04/12/20 16:10 16:13 16:18 Temperature 98.3 F Pulse Rate 81 80 Respiratory Rate Blood Pressure Blood Pressure [Right] O2 Sat by Pulse 95 96 Oximetry 04/12/20 04/12/20 04/12/20 16:20 16:23 16:26 Temperature Pulse Rate 79 84 87 Respiratory Rate Blood Pressure 139/72 Blood Pressure [Right] O2 Sat by Pulse 97 94 Oximetry 04/12/20 04/12/20 04/12/20 16:28 16:33 16:35 Temperature 98.3 F Pulse Rate 81 88 112 H Respiratory Rate Blood Pressure 148/84 Blood Pressure [Right] O2 Sat by Pulse 97 96 Oximetry 04/12/20 04/12/20 04/12/20 16:38 16:40 16:43 Temperature Pulse Rate 79 88 111 H Respiratory Rate Blood Pressure Blood Pressure [Right] O2 Sat by Pulse 97 94 97 Oximetry 04/12/20 04/12/20 04/12/20 16:47 16:48 16:50 Temperature Pulse Rate 91 H 86 80 Respiratory Rate Blood Pressure 145/76 Blood Pressure [Right] O2 Sat by Pulse 94 97 Oximetry 04/12/20 04/12/20 04/12/20 16:53 16:58 17:00 Temperature 98.8 F Pulse Rate 82 82 Respiratory Rate Blood Pressure Blood Pressure [Right] O2 Sat by Pulse 98 98 Oximetry 04/12/20 04/12/20 04/12/20 17:03 17:05 17:08 Temperature Pulse Rate 81 80 131 H Respiratory Rate Blood Pressure 148/76 Blood Pressure [Right] O2 Sat by Pulse 99 95 Oximetry 04/12/20 04/12/20 04/12/20 17:13 17:18 17:21 Temperature Pulse Rate 120 H 78 74 Respiratory Rate Blood Pressure 126/64 Blood Pressure [Right] O2 Sat by Pulse 97 99 Oximetry 04/12/20 04/12/20 04/12/20 17:23 17:28 17:33 Temperature Pulse Rate 98 H 81 79 Respiratory Rate Blood Pressure Blood Pressure [Right] O2 Sat by Pulse 100 100 100 Oximetry 04/12/20 04/12/20 04/12/20 17:38 17:43 17:48 Temperature Pulse Rate 87 90 79 Respiratory Rate Blood Pressure Blood Pressure [Right] O2 Sat by Pulse 99 100 99 Oximetry 04/12/20 04/12/20 04/12/20 17:53 17:58 18:03 Temperature Pulse Rate 86 81 82 Respiratory Rate Blood Pressure Blood Pressure [Right] O2 Sat by Pulse 98 100 100 Oximetry 04/12/20 04/12/20 04/12/20 18:08 18:13 18:18 Temperature Pulse Rate 97 H 84 90 Respiratory Rate Blood Pressure Blood Pressure [Right] O2 Sat by Pulse 99 99 98 Oximetry 04/12/20 04/12/20 04/12/20 18:23 18:28 18:33 Temperature Pulse Rate 118 H 78 99 H Respiratory Rate Blood Pressure Blood Pressure [Right] O2 Sat by Pulse 99 99 99 Oximetry 04/12/20 04/12/20 04/12/20 18:36 18:38 18:39 Temperature Pulse Rate 99 H 107 H 89 Respiratory Rate Blood Pressure 142/79 142/67 Blood Pressure [Right] O2 Sat by Pulse 96 Oximetry 04/12/20 04/12/20 04/12/20 18:42 18:43 18:46 Temperature Pulse Rate 82 88 88 Respiratory Rate Blood Pressure 146/69 159/90 Blood Pressure [Right] O2 Sat by Pulse 95 Oximetry 04/12/20 04/12/20 04/12/20 18:48 18:51 18:52 Temperature Pulse Rate 104 H 88 93 H Respiratory Rate Blood Pressure 153/94 135/69 128/71 Blood Pressure [Right] O2 Sat by Pulse 96 Oximetry 04/12/20 04/12/20 04/12/20 18:53 18:54 18:55 Temperature Pulse Rate 80 81 80 Respiratory Rate Blood Pressure 126/61 133/65 141/73 Blood Pressure [Right] O2 Sat by Pulse 95 Oximetry 04/12/20 04/12/20 04/12/20 18:56 18:58 18:59 Temperature Pulse Rate 95 H 70 75 Respiratory Rate Blood Pressure 129/64 121/71 134/63 Blood Pressure [Right] O2 Sat by Pulse 100 Oximetry 04/12/20 04/12/20 04/12/20 19:00 19:01 19:02 Temperature 98.2 F Pulse Rate 86 76 75 Respiratory Rate Blood Pressure 137/73 153/68 147/66 Blood Pressure [Right] O2 Sat by Pulse Oximetry 04/12/20 04/12/20 04/12/20 19:03 19:08 19:09 Temperature Pulse Rate 83 84 84 Respiratory Rate Blood Pressure 142/75 Blood Pressure [Right] O2 Sat by Pulse 100 100 Oximetry 04/12/20 04/12/20 04/12/20 19:13 19:14 19:18 Temperature Pulse Rate 84 85 81 Respiratory Rate Blood Pressure 130/57 Blood Pressure [Right] O2 Sat by Pulse 100 100 Oximetry 04/12/20 04/12/20 04/12/20 19:21 19:23 19:28 Temperature Pulse Rate 88 92 H 79 Respiratory Rate Blood Pressure 116/50 107/49 112/50 Blood Pressure [Right] O2 Sat by Pulse 100 100 Oximetry 04/12/20 04/12/20 04/12/20 19:33 19:34 19:38 Temperature Pulse Rate 82 84 82 Respiratory Rate Blood Pressure 131/60 133/60 Blood Pressure [Right] O2 Sat by Pulse 100 100 Oximetry 04/12/20 04/12/20 04/12/20 19:43 19:48 19:53 Temperature Pulse Rate 82 82 80 Respiratory Rate Blood Pressure 129/61 Blood Pressure [Right] O2 Sat by Pulse 100 100 100 Oximetry 04/12/20 04/12/20 04/12/20 19:58 20:00 20:03 Temperature 97.4 F L Pulse Rate 77 87 Respiratory Rate Blood Pressure 120/59 Blood Pressure [Right] O2 Sat by Pulse 100 100 Oximetry 04/12/20 04/12/20 04/12/20 20:08 20:13 20:15 Temperature Pulse Rate 83 89 77 Respiratory Rate Blood Pressure 126/57 Blood Pressure [Right] O2 Sat by Pulse 100 100 Oximetry 04/12/20 04/12/20 04/12/20 20:18 20:23 20:28 Temperature Pulse Rate 98 H 78 81 Respiratory Rate Blood Pressure Blood Pressure [Right] O2 Sat by Pulse 100 100 100 Oximetry 04/12/20 04/12/20 04/12/20 20:29 20:33 20:38 Temperature Pulse Rate 89 83 101 H Respiratory Rate Blood Pressure 119/53 Blood Pressure [Right] O2 Sat by Pulse 100 100 Oximetry 04/12/20 04/12/20 04/12/20 20:43 20:45 20:48 Temperature Pulse Rate 136 H 103 H 116 H Respiratory Rate Blood Pressure 129/60 Blood Pressure [Right] O2 Sat by Pulse 100 100 Oximetry 04/12/20 04/12/20 04/12/20 20:53 20:58 20:59 Temperature Pulse Rate 140 H 96 H 95 H Respiratory Rate Blood Pressure 142/65 Blood Pressure [Right] O2 Sat by Pulse 100 100 Oximetry 04/12/20 04/12/20 04/12/20 21:03 21:08 21:13 Temperature Pulse Rate 94 H 106 H 98 H Respiratory Rate Blood Pressure Blood Pressure [Right] O2 Sat by Pulse 100 100 100 Oximetry 04/12/20 04/12/20 04/12/20 21:15 21:18 21:23 Temperature Pulse Rate 103 H 122 H 109 H Respiratory Rate Blood Pressure 133/62 Blood Pressure [Right] O2 Sat by Pulse 100 100 Oximetry 04/12/20 04/12/20 04/12/20 21:28 21:29 21:30 Temperature 98.0 F Pulse Rate 124 H 117 H Respiratory Rate Blood Pressure 123/59 Blood Pressure [Right] O2 Sat by Pulse 99 Oximetry 04/12/20 04/12/20 04/12/20 21:33 21:38 21:43 Temperature Pulse Rate 126 H 122 H 102 H Respiratory Rate Blood Pressure Blood Pressure [Right] O2 Sat by Pulse 98 99 99 Oximetry 04/12/20 04/12/20 21:45 21:55 Temperature Pulse Rate 131 H 128 H Respiratory Rate Blood Pressure 126/58 Blood Pressure [Right] O2 Sat by Pulse 100 Oximetry - Exam Breasts: normal Cardiovascular: Regular rate Lungs: Normal air movement Abdomen: Present: normal appearance, soft Vulva: both: normal FHR: category 2 Uterine Contraction Monitor Mode: Internal Cervical Dilatation: 9 Cervical Effacement Percentage: 100 station: +1 Uterine Contraction Frequency (min): 2-3.5 Uterine Contraction Duration: 60 Uterine Contraction Pattern: Regular Uterine Tone Measurement Phase: Contraction Uterine Contraction Intensity: Moderate Extremities: normal - Labs Labs: Abnormal Labs 04/12/20 12:00 Hgb 14.4 H MCH 33 H MCHC 36 H RDW 13.0 L Laboratory Results - last 24 hr 04/12/20 04/12/20 04/12/20 12:00 12:00 12:00 WBC 10.9 RBC 4.42 Hgb 14.4 H Hct 39.6 MCV 90 MCH 33 H MCHC 36 H RDW 13.0 L Plt Count 237 Syphilis IgG Antibody Nonreactive Blood Type A NEGATIVE Antibody Screen Negative <KYLIE PEREZ D - Last Filed: 04/12/20 23:48> Assessment and Plan Late entry Decelerations noted, cervix 7-8/90/0. FHT's recovered with intrauterine resuscitation measures. Discussed possible need for C/S if FHT's continue to be non-reassuring. Patient voiced concerns for C/S delivery. While reviewing the consent with the patient, late decelerations were noted, findings were explained and concern poor outcome discussed if ALEXANDRA continues, patient consented to proceed with C/S. She was moved to the OR were FHT's were noted to be 142 by hand held doppler on immediate arial to OR. Objective - Vital Signs Vital Signs: Vital Signs - 12hr 04/12/20 04/12/20 04/12/20 11:38 11:43 11:48 Temperature Pulse Rate 88 86 85 Respiratory Rate Blood Pressure O2 Sat by Pulse 98 97 98 Oximetry 04/12/20 04/12/20 04/12/20 11:53 11:58 12:03 Temperature Pulse Rate 80 117 H 74 Respiratory Rate Blood Pressure O2 Sat by Pulse 98 97 99 Oximetry 04/12/20 04/12/20 04/12/20 12:08 12:18 12:19 Temperature Pulse Rate 98 H 89 96 H Respiratory Rate Blood Pressure O2 Sat by Pulse 100 99 92 Oximetry 04/12/20 04/12/20 04/12/20 12:20 12:23 12:26 Temperature Pulse Rate 86 92 H 90 Respiratory Rate Blood Pressure 133/68 O2 Sat by Pulse 95 94 Oximetry 04/12/20 04/12/20 04/12/20 12:28 12:33 12:38 Temperature Pulse Rate 96 H 93 H 89 Respiratory Rate Blood Pressure O2 Sat by Pulse 95 94 97 Oximetry 04/12/20 04/12/20 04/12/20 12:43 12:48 12:53 Temperature Pulse Rate 88 88 97 H Respiratory Rate Blood Pressure O2 Sat by Pulse 97 98 97 Oximetry 04/12/20 04/12/20 04/12/20 12:58 13:03 13:08 Temperature Pulse Rate 87 96 H 82 Respiratory Rate Blood Pressure O2 Sat by Pulse 97 97 97 Oximetry 04/12/20 04/12/20 04/12/20 13:13 13:18 13:23 Temperature Pulse Rate 86 78 79 Respiratory Rate Blood Pressure O2 Sat by Pulse 96 97 98 Oximetry 04/12/20 04/12/20 04/12/20 13:28 13:33 13:38 Temperature Pulse Rate 86 84 85 Respiratory Rate Blood Pressure O2 Sat by Pulse 98 97 98 Oximetry 04/12/20 04/12/20 04/12/20 13:43 13:48 13:53 Temperature Pulse Rate 83 91 H 88 Respiratory Rate Blood Pressure O2 Sat by Pulse 96 97 98 Oximetry 04/12/20 04/12/20 04/12/20 13:58 14:03 14:08 Temperature Pulse Rate 86 93 H 85 Respiratory Rate Blood Pressure O2 Sat by Pulse 98 98 96 Oximetry 04/12/20 04/12/20 04/12/20 14:13 14:18 14:23 Temperature Pulse Rate 93 H 86 103 H Respiratory Rate Blood Pressure O2 Sat by Pulse 96 95 98 Oximetry 04/12/20 04/12/20 04/12/20 14:28 14:33 14:36 Temperature Pulse Rate 89 83 102 H Respiratory Rate Blood Pressure O2 Sat by Pulse 98 96 94 Oximetry 04/12/20 04/12/20 04/12/20 14:38 14:43 14:48 Temperature Pulse Rate 75 79 90 Respiratory Rate Blood Pressure O2 Sat by Pulse 99 98 98 Oximetry 12/02/20 12/02/20 12/02/20 14:53 14:58 15:03 Temperature Pulse Rate 100 H 83 81 Respiratory Rate Blood Pressure O2 Sat by Pulse 98 99 98 Oximetry 04/12/20 04/12/20 04/12/20 15:08 15:13 15:18 Temperature Pulse Rate 86 86 84 Respiratory Rate Blood Pressure O2 Sat by Pulse 99 99 98 Oximetry 04/12/20 04/12/20 04/12/20 15:23 15:28 15:33 Temperature Pulse Rate 86 92 H 91 H Respiratory Rate Blood Pressure O2 Sat by Pulse 98 97 98 Oximetry 04/12/20 04/12/20 04/12/20 15:38 15:43 15:48 Temperature Pulse Rate 83 86 89 Respiratory Rate Blood Pressure O2 Sat by Pulse 97 99 98 Oximetry 04/12/20 04/12/20 04/12/20 15:53 15:58 16:00 Temperature Pulse Rate 85 83 Respiratory 16 Rate Blood Pressure O2 Sat by Pulse 98 98 Oximetry 04/12/20 04/12/20 04/12/20 16:03 16:05 16:08 Temperature Pulse Rate 81 93 H 111 H Respiratory Rate Blood Pressure 140/74 O2 Sat by Pulse 97 95 Oximetry 04/12/20 04/12/20 04/12/20 16:10 16:13 16:18 Temperature 98.3 F Pulse Rate 81 80 Respiratory Rate Blood Pressure O2 Sat by Pulse 95 96 Oximetry 04/12/20 04/12/20 04/12/20 16:20 16:23 16:26 Temperature Pulse Rate 79 84 87 Respiratory Rate Blood Pressure 139/72 O2 Sat by Pulse 97 94 Oximetry 04/12/20 04/12/20 04/12/20 16:28 16:33 16:35 Temperature 98.3 F Pulse Rate 81 88 112 H Respiratory Rate Blood Pressure 148/84 O2 Sat by Pulse 97 96 Oximetry 04/12/20 04/12/20 04/12/20 16:38 16:40 16:43 Temperature Pulse Rate 79 88 111 H Respiratory Rate Blood Pressure O2 Sat by Pulse 97 94 97 Oximetry 04/12/20 04/12/20 04/12/20 16:47 16:48 16:50 Temperature Pulse Rate 91 H 86 80 Respiratory Rate Blood Pressure 145/76 O2 Sat by Pulse 94 97 Oximetry 04/12/20 04/12/20 04/12/20 16:53 16:58 17:00 Temperature 98.8 F Pulse Rate 82 82 Respiratory Rate Blood Pressure O2 Sat by Pulse 98 98 Oximetry 04/12/20 04/12/20 04/12/20 17:03 17:05 17:08 Temperature Pulse Rate 81 80 131 H Respiratory Rate Blood Pressure 148/76 O2 Sat by Pulse 99 95 Oximetry 04/12/20 04/12/20 04/12/20 17:13 17:18 17:21 Temperature Pulse Rate 120 H 78 74 Respiratory Rate Blood Pressure 126/64 O2 Sat by Pulse 97 99 Oximetry 04/12/20 04/12/20 04/12/20 17:23 17:28 17:33 Temperature Pulse Rate 98 H 81 79 Respiratory Rate Blood Pressure O2 Sat by Pulse 100 100 100 Oximetry 04/12/20 04/12/20 04/12/20 17:38 17:43 17:48 Temperature Pulse Rate 87 90 79 Respiratory Rate Blood Pressure O2 Sat by Pulse 99 100 99 Oximetry 04/12/20 04/12/20 04/12/20 17:53 17:58 18:03 Temperature Pulse Rate 86 81 82 Respiratory Rate Blood Pressure O2 Sat by Pulse 98 100 100 Oximetry 04/12/20 04/12/20 04/12/20 18:08 18:13 18:18 Temperature Pulse Rate 97 H 84 90 Respiratory Rate Blood Pressure O2 Sat by Pulse 99 99 98 Oximetry 04/12/20 04/12/20 04/12/20 18:23 18:28 18:33 Temperature Pulse Rate 118 H 78 99 H Respiratory Rate Blood Pressure O2 Sat by Pulse 99 99 99 Oximetry 04/12/20 04/12/20 04/12/20 18:36 18:38 18:39 Temperature Pulse Rate 99 H 107 H 89 Respiratory Rate Blood Pressure 142/79 142/67 O2 Sat by Pulse 96 Oximetry 04/12/20 04/12/20 04/12/20 18:42 18:43 18:46 Temperature Pulse Rate 82 88 88 Respiratory Rate Blood Pressure 146/69 159/90 O2 Sat by Pulse 95 Oximetry 04/12/20 04/12/20 04/12/20 18:48 18:51 18:52 Temperature Pulse Rate 104 H 88 93 H Respiratory Rate Blood Pressure 153/94 135/69 128/71 O2 Sat by Pulse 96 Oximetry 04/12/20 04/12/20 04/12/20 18:53 18:54 18:55 Temperature Pulse Rate 80 81 80 Respiratory Rate Blood Pressure 126/61 133/65 141/73 O2 Sat by Pulse 95 Oximetry 04/12/20 04/12/20 04/12/20 18:56 18:58 18:59 Temperature Pulse Rate 95 H 70 75 Respiratory Rate Blood Pressure 129/64 121/71 134/63 O2 Sat by Pulse 100 Oximetry 04/12/20 04/12/20 04/12/20 19:00 19:01 19:02 Temperature 98.2 F Pulse Rate 86 76 75 Respiratory Rate Blood Pressure 137/73 153/68 147/66 O2 Sat by Pulse Oximetry 04/12/20 04/12/20 04/12/20 19:03 19:08 19:09 Temperature Pulse Rate 83 84 84 Respiratory Rate Blood Pressure 142/75 O2 Sat by Pulse 100 100 Oximetry 04/12/20 04/12/20 04/12/20 19:13 19:14 19:18 Temperature Pulse Rate 84 85 81 Respiratory Rate Blood Pressure 130/57 O2 Sat by Pulse 100 100 Oximetry 04/12/20 04/12/20 04/12/20 19:21 19:23 19:28 Temperature Pulse Rate 88 92 H 79 Respiratory Rate Blood Pressure 116/50 107/49 112/50 O2 Sat by Pulse 100 100 Oximetry 04/12/20 04/12/20 04/12/20 19:33 19:34 19:38 Temperature Pulse Rate 82 84 82 Respiratory Rate Blood Pressure 131/60 133/60 O2 Sat by Pulse 100 100 Oximetry 04/12/20 04/12/20 04/12/20 19:43 19:48 19:53 Temperature Pulse Rate 82 82 80 Respiratory Rate Blood Pressure 129/61 O2 Sat by Pulse 100 100 100 Oximetry 04/12/20 04/12/20 04/12/20 19:58 20:00 20:03 Temperature 97.4 F L Pulse Rate 77 87 Respiratory Rate Blood Pressure 120/59 O2 Sat by Pulse 100 100 Oximetry 04/12/20 04/12/20 04/12/20 20:08 20:13 20:15 Temperature Pulse Rate 83 89 77 Respiratory Rate Blood Pressure 126/57 O2 Sat by Pulse 100 100 Oximetry 04/12/20 04/12/20 04/12/20 20:18 20:23 20:28 Temperature Pulse Rate 98 H 78 81 Respiratory Rate Blood Pressure O2 Sat by Pulse 100 100 100 Oximetry 04/12/20 04/12/20 04/12/20 20:29 20:33 20:38 Temperature Pulse Rate 89 83 101 H Respiratory Rate Blood Pressure 119/53 O2 Sat by Pulse 100 100 Oximetry 04/12/20 04/12/20 04/12/20 20:43 20:45 20:48 Temperature Pulse Rate 136 H 103 H 116 H Respiratory Rate Blood Pressure 129/60 O2 Sat by Pulse 100 100 Oximetry 04/12/20 04/12/20 04/12/20 20:53 20:58 20:59 Temperature Pulse Rate 140 H 96 H 95 H Respiratory Rate Blood Pressure 142/65 O2 Sat by Pulse 100 100 Oximetry 04/12/20 04/12/20 04/12/20 21:03 21:08 21:13 Temperature Pulse Rate 94 H 106 H 98 H Respiratory Rate Blood Pressure O2 Sat by Pulse 100 100 100 Oximetry 04/12/20 04/12/20 04/12/20 21:15 21:18 21:23 Temperature Pulse Rate 103 H 122 H 109 H Respiratory Rate Blood Pressure 133/62 O2 Sat by Pulse 100 100 Oximetry 04/12/20 04/12/20 04/12/20 21:28 21:29 21:30 Temperature 98.0 F Pulse Rate 124 H 117 H Respiratory Rate Blood Pressure 123/59 O2 Sat by Pulse 99 Oximetry 04/12/20 04/12/20 04/12/20 21:33 21:38 21:43 Temperature Pulse Rate 126 H 122 H 102 H Respiratory Rate Blood Pressure O2 Sat by Pulse 98 99 99 Oximetry 04/12/20 04/12/20 04/12/20 21:45 21:55 22:00 Temperature Pulse Rate 131 H 128 H 135 H Respiratory Rate Blood Pressure 126/58 O2 Sat by Pulse 100 100 Oximetry 04/12/20 04/12/20 22:05 22:10 Temperature Pulse Rate 130 H 170 H Respiratory Rate Blood Pressure O2 Sat by Pulse 100 100 Oximetry - Labs Labs: Abnormal Labs 04/12/20 12:00 Hgb 14.4 H MCH 33 H MCHC 36 H RDW 13.0 L Laboratory Results - last 24 hr 04/12/20 04/12/20 04/12/20 12:00 12:00 12:00 WBC 10.9 RBC 4.42 Hgb 14.4 H Hct 39.6 MCV 90 MCH 33 H MCHC 36 H RDW 13.0 L Plt Count 237 POC Glucose Syphilis IgG Antibody Nonreactive Blood Type A NEGATIVE Antibody Screen Negative 04/12/20 21:59 WBC RBC Hgb Hct MCV MCH MCHC RDW Plt Count POC Glucose 103 Syphilis IgG Antibody Blood Type Antibody Screen
[2020-04-12] MEDS ORDERED: LACTATED RINGERS 1000 ML IV SOLN IV ONE (22:20)
[2020-04-12] MEDS ORDERED: LIDOCAINE 2%/EPINEPHRINE 1:200,000 VIAL (20 ML) INFILTRATI ONE (22:46)
[2020-04-12] MEDS ORDERED: dexAMETHasone 20 MG/5 ML VIAL ONE (22:46)
[2020-04-12] MEDS ORDERED: SODIUM BICARB 8.4% 50 MEQ/50 ML VIAL IV ONE (22:46)
[2020-04-12] MEDS ORDERED: BUPIVACAINE/PF (0.5%) 5 MG/1 ML 30 ML VIAL INFILTRATI ONE (22:46)
[2020-04-12] MEDS ORDERED: KETOROLAC 30 MG/1 ML INJ ONE (22:54)
[2020-04-12] MEDS ORDERED: ceFAZolin/Water 2 GM/20 ML 2 GM/20 ML SYRINGE IV NR (23:00)
--- NOTE | 2020-04-12 23:38 | Post Anesthesia Evaluation ---
- Post Anesthesia Evaluation Patient Participated: Yes Airway Patent: Yes Stable Respiratory Function: Yes Nausea/Vomiting: No Temp > 96.8F: Yes Pain Manageable: Yes Adequeate Hydration: Yes Anesthesia Complications: No Block Receding Appropriately: Yes
--- NOTE | 2020-04-12 23:39 | Progress Note ---
Regional Anesthesia Block - Regional Anesthesia Block Start Time: 23:25 Stop Time: 23:30 Performed By:: ALDO ADAMSON Procedure: U/S guided bilateral tap block performed for post-operative pain requested by Dr. Perez. H&P & labs reviewed. Procedure explained, questions answered, consent obtained. Patient in the supine position with ekg, blood pressure cuff and pulse ox on and working in PACU. Timeout performed immediately before start of procedure. Probe placed in the mid-axillary line and the external oblique, internal oblique, and transverse abdominus muscles identified. Skin was cleansed with 0.5% Chlorahexadine and allowed to dry. A 4" 20 G Parks echogenic needle was advanced in plane until the tip was in the fascial plane between the internal oblique and the transverse abdominus. After negative aspiration 35 ml/side of [30 ml 0.5% Bupivacaine], [50 mcg dexmedetomidine], [10 mg dexamethasone], and [40 ml sterile saline] was injected in 5 ml increments with negative aspiration in between. Patient tolerated procedure well.
--- NOTE | 2020-04-13 00:51 | Operative Report ---
Operative Report Operative Report: Date of operation: 04/12/2020 Pre-operative diagnosis: 1. 40 weeks gestational age 2. Active labor 3. Nonreassuring heart rate tracing, category 3 4. BMI 37.9 kg/m Post-operative diagnosis: 1. 40 weeks gestational age 2. Active labor 3. Nonreassuring heart rate tracing, category 3 4. BMI 37.9 kg/m Procedure name(s): Primary low transverse delivery Surgeon: Emi Perez MD Paint Grinder: XAVIER Araiza Anesthesia: Epidural EBL: 700 mL Urine output: 700 mL of clear urine out at the end of the procedure Fluids: 1 L mL Findings: Liveborn male infant weight 7 Lbs. 6 oz. Apgars of 1 and 7 at one and 5 minutes Indications: Patient presented in active labor with a category 2 heart rate tracing. After admission and IV fluid strip became category 1 heart rate tracing with intermittent episodes of category 2 heart rate tracing. Pitocin was attempted to assist with progression of labor however category 2 heart rate tracings were noted and Pitocin was discontinued from there she had spontaneous progression of labor until 7-8 cm where category 3 strip was recognized and she was taken for delivery. Procedure: Patient was taking to the operating room. Epidural anesthesia was bolused. Patient was then prepped and draped in the usual sterile fashion Timeout was performed. Once an appropriate level of anesthesia was noted, a Pfannenstiel incision was made and extended the fascia which was incised and extended lateral direction. The overlying fascia was sharply dissected away from the underlying rectus muscles in the superior inferior direction. The midline was entered bluntly. Bladder blade was placed. Vesicouterine fold was incised with blunt dissection bladder flap was created. A transverse incision was made in the lower uterine segment and extended superolateral direction with finger fractionation. Thick meconium stained fluid was noted. Infant was delivered from the cephalic LOT position, with weak cry with stimulation and good tone. Mouth and nose bulb suctioned. Cord was doubly clamped and cut infant was given to the resuscitation team present. Placenta was delivered and sent to pathology. The uterus was exteriorized and cleaned of any further placental tissue and products of conception. Uterine incision was approximated using 0 Vicryl in a running interlocking stitch followed by further suture of 0 Vicryl in imbricating fashion. When hemostasis was noted the uterus was allowed back in the pelvic cavity. Pelvis was irrigated with warm normal saline. Once hemostasis was noted the rectus muscles were approximated using 0 Vicryl interrupted simple stitches 3. Once hemostasis was noted the fascia was approximated using 0 Vicryl simple running stitch. The incision was irrigated with warm saline, once hemostasis as noted, the subcuticular adipose tissue was reapproximated using 3-0 Vicryl in a simple running fashion. Skin was approximated using 4-0 Vicryl on a Kirill needle in a subcuticular manner. Counts were correct x3. Patient tolerated the procedure well, she was taken to recovery room in stable condition. Cord gases were obtained by Estephanie Galeas&Vicente DUEÑAS.
[2020-04-13] MEDS ORDERED: ACETAMINOPHEN 325 MG TAB PO PRN (03:30)
[2020-04-13] MEDS ORDERED: MAGNESIUM HYDROXIDE (MOM) ORAL LIQD UDC PO PRN (03:30)
[2020-04-13] MEDS ORDERED: OXYTOCIN DRIP 30 UNITS/500 ML BAG IV SCH (03:30)
[2020-04-13] MEDS ORDERED: LANOLIN/ZINC/DIMETHICONE (LANSINOH) 7 GM TP PRN (03:30)
[2020-04-13] MEDS ORDERED: SIMETHICONE 80 MG CHEW TAB PO PRN (03:30)
[2020-04-13] MEDS ORDERED: IBUPROFEN 600 MG TAB PO PRN (03:30)
[2020-04-13] MEDS ORDERED: MORPHINE 4 MG/1 ML INJ IV PRN (03:30)
[2020-04-13] MEDS ORDERED: WITCH HAZEL/ GLYCERIN PAD TP PRN (03:30)
[2020-04-13] MEDS ORDERED: NALOXONE 0.4 MG/1 ML INJ IV PRN (03:30)
[2020-04-13] MEDS ORDERED: KETOROLAC 30 MG/1 ML INJ IV PRN ×2 (03:30)
[2020-04-13] MEDS ORDERED: ONDANSETRON 4 MG/2 ML INJ IV PRN (03:30)
[2020-04-13] MEDS: ceFAZolin/NS 1 GM/50 ML 1 GM/50 ML BAG IV SCH ×2 (06:11→15:18)
--- NOTE | 2020-04-13 08:31 | Progress Note ---
Assessment and Plan Pt laying in bed quietly. No visible s/s of distress. Denies pain. VSSAF post- delivery. Post-op H/H scheduled to be drawn this morning. Incision dressing clean, dry, and intact. To be removed tomorrow. Fundus firm at umbilicus. Light vaginal bleeding seen. Espino to bedside bag with mildly nicolasa-colored urine. UO adequate post-delivery. +flatus. Plans to attempt breast pumping. P: Continue PP pathway. - Patient Problems (1) delivery delivered Current Visit: Yes Status: Acute Subjective - Subjective Date of service: 04/13/20 Principal diagnosis: <12 hr s/p primary C/S d/t Deborah. 3 tracing Patient reports: voiding normally (to bedside catheter), pain well controlled, flatus : doing well Objective - Vital Signs Latest vital signs: Vital Signs Temp Pulse Resp BP BP Pulse Ox 04/13/20 01:50 98.4 F 91 H 18 123/49 100 04/13/20 01:05 98 H 16 105/55 86 04/13/20 00:45 98 H 20 93/45 98 04/13/20 00:30 81 18 100/39 97 04/13/20 00:15 84 16 96/38 95 04/13/20 00:00 78 16 90/36 94 04/12/20 23:45 77 17 96/41 96 04/12/20 23:30 80 16 103/39 96 04/12/20 23:27 80 18 101/39 96 04/12/20 23:24 80 12 101/42 96 04/12/20 23:20 99.6 F 87 16 100/42 96 04/12/20 22:10 170 H 100 04/12/20 22:05 130 H 100 04/12/20 22:00 135 H 100 04/12/20 21:55 128 H 100 04/12/20 21:45 131 H 126/58 04/12/20 21:43 102 H 99 04/12/20 21:38 122 H 99 04/12/20 21:33 126 H 98 04/12/20 21:30 117 H 123/59 04/12/20 21:29 98.0 F 04/12/20 21:28 124 H 99 04/12/20 21:23 109 H 100 12/02/20 21:18 122 H 100 04/12/20 21:15 103 H 133/62 04/12/20 21:13 98 H 100 04/12/20 21:08 106 H 100 04/12/20 21:03 94 H 100 04/12/20 20:59 95 H 142/65 04/12/20 20:58 96 H 100 04/12/20 20:53 140 H 100 04/12/20 20:48 116 H 100 04/12/20 20:45 103 H 129/60 04/12/20 20:43 136 H 100 04/12/20 20:38 101 H 100 04/12/20 20:33 83 100 04/12/20 20:29 89 119/53 04/12/20 20:28 81 100 04/12/20 20:23 78 100 04/12/20 20:18 98 H 100 04/12/20 20:15 77 126/57 04/12/20 20:13 89 100 04/12/20 20:08 83 100 04/12/20 20:03 87 100 04/12/20 20:00 97.4 F L 04/12/20 19:58 77 120/59 100 04/12/20 19:53 80 100 04/12/20 19:48 82 100 04/12/20 19:43 82 129/61 100 04/12/20 19:38 82 133/60 100 04/12/20 19:34 84 131/60 04/12/20 19:33 82 100 04/12/20 19:28 79 112/50 100 04/12/20 19:23 92 H 107/49 100 04/12/20 19:21 88 116/50 04/12/20 19:18 81 100 04/12/20 19:14 85 130/57 04/12/20 19:13 84 100 04/12/20 19:09 84 142/75 04/12/20 19:08 84 100 04/12/20 19:03 83 100 04/12/20 19:02 75 147/66 04/12/20 19:01 76 153/68 04/12/20 19:00 98.2 F 86 137/73 04/12/20 18:59 75 134/63 04/12/20 18:58 70 121/71 100 04/12/20 18:56 95 H 129/64 04/12/20 18:55 80 141/73 04/12/20 18:54 81 133/65 04/12/20 18:53 80 126/61 95 04/12/20 18:52 93 H 128/71 04/12/20 18:51 88 135/69 04/12/20 18:48 104 H 153/94 96 04/12/20 18:46 88 159/90 04/12/20 18:43 88 95 04/12/20 18:42 82 146/69 04/12/20 18:39 89 142/67 04/12/20 18:38 107 H 96 04/12/20 18:36 99 H 142/79 04/12/20 18:33 99 H 99 04/12/20 18:28 78 99 04/12/20 18:23 118 H 99 04/12/20 18:18 90 98 04/12/20 18:13 84 99 04/12/20 18:08 97 H 99 04/12/20 18:03 82 100 04/12/20 17:58 81 100 04/12/20 17:53 86 98 04/12/20 17:48 79 99 04/12/20 17:43 90 100 04/12/20 17:38 87 99 04/12/20 17:33 79 100 04/12/20 17:28 81 100 04/12/20 17:23 98 H 100 04/12/20 17:21 74 126/64 04/12/20 17:18 78 99 04/12/20 17:13 120 H 97 04/12/20 17:08 131 H 95 04/12/20 17:05 80 148/76 04/12/20 17:03 81 99 04/12/20 17:00 98.8 F 04/12/20 16:58 82 98 04/12/20 16:53 82 98 04/12/20 16:50 80 145/76 04/12/20 16:48 86 97 04/12/20 16:47 91 H 94 04/12/20 16:43 111 H 97 04/12/20 16:40 88 94 04/12/20 16:38 79 97 04/12/20 16:35 112 H 148/84 04/12/20 16:33 98.3 F 88 96 04/12/20 16:28 81 97 04/12/20 16:26 87 94 04/12/20 16:23 84 97 04/12/20 16:20 79 139/72 04/12/20 16:18 80 96 04/12/20 16:13 81 95 04/12/20 16:10 98.3 F 04/12/20 16:08 111 H 95 04/12/20 16:05 93 H 140/74 04/12/20 16:03 81 97 04/12/20 16:00 16 04/12/20 15:58 83 98 04/12/20 15:53 85 98 04/12/20 15:48 89 98 04/12/20 15:43 86 99 04/12/20 15:38 83 97 04/12/20 15:33 91 H 98 04/12/20 15:28 92 H 97 04/12/20 15:23 86 98 04/12/20 15:18 84 98 04/12/20 15:13 86 99 04/12/20 15:08 86 99 04/12/20 15:03 81 98 04/12/20 14:58 83 99 04/12/20 14:53 100 H 98 04/12/20 14:48 90 98 04/12/20 14:43 79 98 04/12/20 14:38 75 99 04/12/20 14:36 102 H 94 04/12/20 14:33 83 96 04/12/20 14:28 89 98 04/12/20 14:23 103 H 98 04/12/20 14:18 86 95 04/12/20 14:13 93 H 96 04/12/20 14:08 85 96 04/12/20 14:03 93 H 98 04/12/20 13:58 86 98 04/12/20 13:53 88 98 04/12/20 13:48 91 H 97 04/12/20 13:43 83 96 04/12/20 13:38 85 98 04/12/20 13:33 84 97 04/12/20 13:28 86 98 04/12/20 13:23 79 98 04/12/20 13:18 78 97 04/12/20 13:13 86 96 04/12/20 13:08 82 97 04/12/20 13:03 96 H 97 04/12/20 12:58 87 97 04/12/20 12:53 97 H 97 04/12/20 12:48 88 98 04/12/20 12:43 88 97 04/12/20 12:38 89 97 04/12/20 12:33 93 H 94 04/12/20 12:28 96 H 95 04/12/20 12:26 90 94 04/12/20 12:23 92 H 95 04/12/20 12:20 86 133/68 04/12/20 12:19 96 H 92 04/12/20 12:18 89 99 04/12/20 12:08 98 H 100 04/12/20 12:03 74 99 04/12/20 11:58 117 H 97 04/12/20 11:53 80 98 04/12/20 11:48 85 98 04/12/20 11:43 86 97 04/12/20 11:38 88 98 04/12/20 11:33 77 98 04/12/20 11:28 98.4 F 86 20 132/77 98 04/12/20 11:26 86 132/77 Intake and Output 04/12/20 04/13/20 04/13/20 22:59 06:59 14:59 Intake Total 1523.867 100 Output Total 300 300 Balance 1223.867 -200 Intake: IV 1523.867 100 Lactated Ringers 1,000 ml 716.667 @ 125 mls/hr IV DIRECT ESAU Rx#:[id number] PITOCin/NS 30 UNIT/500ML 7.2 30 units In 500 ml @ 2 mls/hr IV TITR ESAU Rx#: [id number] Output: Urine 300 300 Indwelling Catheter 250 Uretheral (Espino) 50 Other: Total, Output Amount 250 Estimated Blood Loss 700 - Exam Breasts: Present: deferred Cardiovascular: Present: Regular rate Lungs: Present: Normal air movement Abdomen: Present: normal appearance, soft, normal bowel sounds Uterus: Present: normal, firm, fundal height at umbilicus Extremities: Present: normal Deep Tendon Reflex Grade: Normal +2 Incision: Present: normal, dry, intact (ABD dressing in place) - Labs Labs: Abnormal lab results 04/12/20 Range/Units 12:00 Hgb 14.4 H (10.1-14.3) gm/dl MCH 33 H (28-32) pg MCHC 36 H (30-34) % RDW 13.0 L (13.2-15.2) %
[2020-04-13] MEDS: HYDROcodone/ACETAMINOPHEN 5-325 MG TAB PO PRN ×2 (09:41→22:20)
[2020-04-13] MEDS ORDERED: LACTATED RINGERS 1,000 ML ONE (10:43)
[2020-04-13] MEDS: IBUPROFEN 800 MG TAB PO SCH ×4 (12:20→23:46)
[2020-04-13 14:35] LABS: Hematocrit 36.2 % (30.3-42.9); Hemoglobin 12.8 gm/dl (10.1-14.3)
[2020-04-13] MEDS: FERROUS SULFATE 325 MG TAB PO SCH ×2 (18:39→22:20)
[2020-04-13] MEDS: PRENATAL VIT27-FE FUMARATE-FOLIC ACID VIT TAB PO SCH (18:40)
[2020-04-14] MEDS: IBUPROFEN 800 MG TAB PO SCH ×3 (05:14→23:06)
[2020-04-14] MEDS ORDERED: DIPHtheria,PERTUSSIS(ACELL),TETANUS VACCINE/PF 0.5 ML VIAL IM ONE (06:00)
[2020-04-14] MEDS ORDERED: MEASLES, MUMPS & RUBELLA 12,500 UNIT/0.5 ML VACCINE SUB-Q ONE (06:00)
--- NOTE | 2020-04-14 09:51 | Discharge Summary ---
Providers - Providers Date of Admission: 04/12/20 12:10 Attending physician: KYLIE HASSAN 04/13/20 03:30 Consult to Industrial Cafeteria Manager [CONS] Routine Reason For Exam: Primary care physician: KYLIE HASSAN Hospitalization Reason for admission: active labor Delivery: Procedure: primary low transverse Episiotomy: none Laceration: none Incision: normal, dry, intact, dressed Other procedures: none complications: none Discharge diagnosis: IUP at term delivered baby: female Hospital course: S: Pt doing well. Ambulating, passing flatus, and voiding without difficulty. O: VSS. Fundus firm, minimal bleeding noted. Dressing removed, incision intact, no drainage or s/sx of infection noted. H/H 12.8/36.2. A: 25 y.o. s/p primary , in good condition, can be discharged home. P: Discharge home with instructions. Pt to schedule an incision check in the office in one week. Pt to schedule a visit in the office in 4 weeks. Condition at discharge: Good Disposition: DC-01 TO HOME OR SELFCARE Plan - Discharge Medications Prescriptions: RX: Ibuprofen [Motrin 800 MG tab] 800 mg PO TID PRN #30 tablet PRN Reason: Pain RX: oxyCODONE /ACETAMINOPHEN [Percocet 5/325 mg] 1 - 2 tab PO Q6HR PRN #14 tablet PRN Reason: Pain - Provider Discharge Summary Activity: routine, no sex for 6 weeks, no heavy lifting 4 weeks, no strenuous exercise Diet: routine Instructions: routine Additional instructions: [] Smoking cessation referral if applicable(refer to patient education folder for contact #) [] Refer to [facility] Booklet Call your doctor immediately for: * Fever > 100.5 * Heavy vaginal bleeding ( >1 pad per hour) * Severe persistent headache * Shortness of breath * Reddened, hot, painful area to leg or breast * Drainage or odor from incision. * Keep incision clean and dry at all times and follow doctor's instructions regarding bathing/showering - Follow up plan Follow up: KYLIE HASSAN MD [Primary Care Provider] - 7 Days (Congratulations!! Please schedule your incision check in the office in 1 week. Please schedule your visit in 4 weeks. If you have any questions or concerns, please do not hesitate to call the office at [phone]. )
[2020-04-14] MEDS: FERROUS SULFATE 325 MG TAB PO SCH ×2 (18:05→23:07)
[2020-04-14] MEDS: HYDROcodone/ACETAMINOPHEN 5-325 MG TAB PO PRN (18:06)
[2020-04-14] MEDS: PRENATAL VIT27-FE FUMARATE-FOLIC ACID VIT TAB PO SCH (18:07)
[2020-04-15] MEDS: IBUPROFEN 800 MG TAB PO SCH ×2 (06:19→12:28)
[2020-04-15] MEDS: HYDROcodone/ACETAMINOPHEN 5-325 MG TAB PO PRN (10:15)
--- NOTE | 2020-04-15 11:02 | Event Note ---
Date: 04/15/20 doing well no cpmplaints Lungs CTAB Breast soft. NT. Exts: NT, trace edema Desires d/c home today
[2020-04-15 12:14] VITALS: BP 129/63
== END 2020-04-15 13:00 | disposition home or self-care (01) | DRG 766 ==
LOC: EDBD 10:55 → TRG 10:55 → APU 10:56 → LD 12:10 → TRG 12:10 → LD 12:15 → OB 04-13 02:24
PROVIDERS: ADMIT Obstetrics & Gynecology; ATTEND Obstetrics & Gynecology
PROC: 10D00Z1 Extraction of Products of Conception, Low, Open Approach (ICD-10-PCS; principal; 2020-04-12)
PROC: 10H07YZ Insertion of Other Device into Products of Conception, Via Natural or Artificial Opening (ICD-10-PCS; 2020-04-12)
PROC: 4A1H7FZ Monitoring of Products of Conception, Cardiac Rhythm, Via Natural or Artificial Opening (ICD-10-PCS; 2020-04-12)
PROC: 3E0234Z Introduction of Serum, Toxoid and Vaccine into Muscle, Percutaneous Approach (ICD-10-PCS; 2020-04-14)
PROC: 3E0134Z Introduction of Serum, Toxoid and Vaccine into Subcutaneous Tissue, Percutaneous Approach (ICD-10-PCS; 2020-04-14)
PROC: 3E0234Z Introduction of Serum, Toxoid and Vaccine into Muscle, Percutaneous Approach (ICD-10-PCS; 2020-04-14)
DX: O76 Abnormality in fetal heart rate and rhythm complicating labor and delivery (principal); O99.824 Streptococcus B carrier state complicating childbirth; Z20.828 Contact with and (suspected) exposure to other viral communicable diseases; O99.214 Obesity complicating childbirth; E66.9 Obesity, unspecified; Z37.0 Single live birth; Z3A.40 40 weeks gestation of pregnancy; Z88.0 Allergy status to penicillin; Z80.1 Family history of malignant neoplasm of trachea, bronchus and lung
CPT/HCPCS: 36415; 82962; 85014; 85018; 85027; 85461; 86592; 86850; 86900; 86901; 88307; G0378; J0690; J1100; J1885; J2590; J2765; J2790; J3010; J3490; J7120; U0003